=== PATIENT | male | born 1935 ===

== ENCOUNTER 2018-03-04 14:20 | Inpatient (IN) | payer MEDICARE ==
[~2018-03-04] VITALS: Ht 177.8 cm; Wt 54.4 kg
[2018-03-04] MEDS ORDERED: BISACODYL 10 MG SUPP PR PRN (15:30)
[2018-03-04] MEDS ORDERED: POLYETHYLENE GLYCOL 17 GM PACKET PO PRN (15:30)
[2018-03-04] MEDS ORDERED: DOCUSATE 100 MG CAPSULE PO PRN (15:30)
[2018-03-04] MEDS ORDERED: PLEASE ENTER HEIGHT AND WEIGHT MC SCH (16:30)
[2018-03-04] MEDS: PLEASE ENTER ALLERGIES MC SCH (16:30)
[2018-03-04] MEDS: FERROUS SULFATE 325 MG TABLET PO SCH (17:00)
[2018-03-04 17:35] VITALS: BP 125/63
[2018-03-04 19:50] VITALS: BP 111/56
[2018-03-04] MEDS: DIVALPROEX 125 MG CAP.SPRINK PO SCH (21:27)
[2018-03-05] MEDS: PLEASE ENTER ALLERGIES MC SCH (00:30)
[2018-03-05] MEDS: OMEPRAZOLE 20 MG CAPSULE.DR PO SCH (06:21)
[2018-03-05] MEDS: FERROUS SULFATE 325 MG TABLET PO SCH ×3 (08:50→19:47)
[2018-03-05] MEDS: DIVALPROEX 125 MG CAP.SPRINK PO SCH ×2 (08:50→19:47)
[2018-03-05 08:55] LABS: BASOPHILS # (AUTO) 0.04 x10^3/uL (0-0.1); BASOPHILS % (AUTO) 1 % (0-1); EOSINOPHILS # (AUTO) 0.07 x10^3/uL (0-0.4); EOSINOPHILS % (AUTO) 1 % (1-7); LYMPHOCYTES # (AUTO) 1.41 x10^3/uL (1-3.4); LYMPHOCYTES % (AUTO) 20 % (22-44); MD NO; MEAN CORPUSCULAR HEMOGLOBIN 32.2 pg (27.5-34.5); MEAN CORPUSCULAR HGB CONC 33.1 g/dL (33.2-36.2); MEAN CORPUSCULAR VOLUME 97.4 fL (81-97); MEAN PLATELET VOLUME 8.4 fL (7.4-10.4); MONOCYTES # (AUTO) 0.83 x10^3/uL (0.2-0.8); MONOCYTES % (AUTO) 12 % (2-9); NEUTROPHILS % (AUTO) 68 % (42-75); PLATELET COUNT 238 x10^3/uL (130-400); RED BLOOD COUNT 3.74 x10^6/uL (4.38-5.82); RED CELL DISTRIBUTION WIDTH 14.7 % (9.4-14.8)
[2018-03-05 09:11] LABS: ALBUMIN 3.6 g/dL (3.4-5.0); ANION GAP 9 mmol/L (5-15); CALCIUM 8.9 mg/dL (8.5-10.1); CHLORIDE 106 mmol/L (98-107)
[2018-03-05 09:32] LABS: % IRON SATURATION 13 % (20-55)
[2018-03-05 09:33] LABS: CHOL/HDL RATIO 3.3; HDL CHOL % 30 % (26-37); LDL CHOLESTEROL,CALCULATED 67 mg/dL (54-169); LDL/HDL RATIO 1.9 (0.5-3.0); VLDL CHOLESTEROL 17 mg/dL (0-25)
[2018-03-05 09:35] LABS: ALANINE AMINOTRANSFERASE 16 U/L (12-78); ALKALINE PHOSPHATASE 158 U/L (45-117); BILIRUBIN,TOTAL 0.3 mg/dL (0.2-1.0); CHOLESTEROL, TOTAL 120 mg/dL (140-239); CREATININE 0.93 mg/dL (0.7-1.3); FOLATE LEVEL 9.7 ng/mL (3.1-17.5); FREE T4 (FREE THYROXINE) 0.83 ng/dL (0.76-1.46); HDL CHOLESTEROL (DIRECT) 36 mg/dL (40-60); IRON LEVEL 51 mcg/dL (65-175); TOTAL IRON BINDING CAPACITY 396 mcg/dL (250-450); TOTAL PROTEIN 7.2 g/dL (6.4-8.2); TRIGLYCERIDES 87 mg/dL (50-200)
[2018-03-05] MEDS: DOCUSATE 100 MG CAPSULE PO SCH (11:00)
[2018-03-05 19:33] VITALS: BP 142/66
[2018-03-06] MEDS: OMEPRAZOLE 20 MG CAPSULE.DR PO SCH (05:48)
[2018-03-06 06:11] LABS: ANION GAP 7 mmol/L (5-15); CALCIUM 8.7 mg/dL (8.5-10.1); CHLORIDE 105 mmol/L (98-107)
[2018-03-06 06:14] LABS: CREATININE 0.78 mg/dL (0.7-1.3)
[2018-03-06 07:38] VITALS: BP 97/56
[2018-03-06] MEDS: DOCUSATE 100 MG CAPSULE PO SCH (09:21)
[2018-03-06] MEDS: FERROUS SULFATE 325 MG TABLET PO SCH ×3 (09:21→21:05)
[2018-03-06] MEDS: DIVALPROEX 125 MG CAP.SPRINK PO SCH ×2 (09:23→21:05)
[2018-03-06] MEDS ORDERED: LORazepam 2 MG/ML, 1ML ONE (10:07)
[2018-03-06] MEDS ORDERED: LORazepam 2 MG/ML, 1ML IM ONE (10:30)
[2018-03-06 17:59] VITALS: BP 130/68
[2018-03-06 19:38] VITALS: BP 159/76
[2018-03-06] MEDS ORDERED: QUETIAPINE 25MG TABLET PO SCH (21:00)
[2018-03-07 07:35] VITALS: BP 154/66
[2018-03-07] MEDS: DOCUSATE 100 MG CAPSULE PO SCH (10:18)
[2018-03-07] MEDS: OMEPRAZOLE 20 MG CAPSULE.DR PO SCH (10:18)
[2018-03-07] MEDS: FERROUS SULFATE 325 MG TABLET PO SCH ×3 (10:19→20:27)
[2018-03-07] MEDS: DIVALPROEX 125 MG CAP.SPRINK PO SCH ×2 (10:19→20:28)
[2018-03-07] MEDS ORDERED: QUETIAPINE 25MG TABLET PO SCH (21:00)
[2018-03-08] VITALS (15 sets, daily range): BP systolic 115–175; BP diastolic 54–83
[2018-03-08] MEDS: OMEPRAZOLE 20 MG CAPSULE.DR PO SCH (06:00)
[2018-03-08] MEDS ORDERED: LORazepam 2 MG/ML, 1ML IM PRN (07:30)
[2018-03-08] MEDS ORDERED: LORazepam 2 MG/ML, 1ML ONE (07:34)
[2018-03-08] MEDS: DIVALPROEX 125 MG CAP.SPRINK PO SCH ×2 (09:02→19:54)
[2018-03-08] MEDS: FERROUS SULFATE 325 MG TABLET PO SCH ×3 (09:02→19:54)
[2018-03-08] MEDS: DOCUSATE 100 MG CAPSULE PO SCH (09:02)
[2018-03-08] MEDS ORDERED: ZIPRASIDONE 20 MG INJ IM STA (09:59)
[2018-03-08] MEDS ORDERED: ZIPRASIDONE 20 MG INJ IM ONE (10:03)
[2018-03-08] MEDS: QUETIAPINE 25MG TABLET PO SCH (19:53)
[2018-03-08] MEDS ORDERED: QUETIAPINE 25MG TABLET PO SCH (21:00)
[2018-03-09] MEDS: OMEPRAZOLE 20 MG CAPSULE.DR PO SCH (05:36)
[2018-03-09 07:38] VITALS: BP 143/51
[2018-03-09] MEDS: DOCUSATE 100 MG CAPSULE PO SCH (09:39)
[2018-03-09] MEDS: FERROUS SULFATE 325 MG TABLET PO SCH ×3 (09:39→20:41)
[2018-03-09] MEDS: DIVALPROEX 125 MG CAP.SPRINK PO SCH ×2 (09:39→20:41)
[2018-03-09] MEDS: LORazepam 0.5MG TABLET PO PRN (09:39)
[2018-03-09 19:30] VITALS: BP 114/53
[2018-03-09] MEDS: QUETIAPINE 25MG TABLET PO SCH (20:40)
[2018-03-10] MEDS: OMEPRAZOLE 20 MG CAPSULE.DR PO SCH ×2 (07:00→09:06)
[2018-03-10 07:26] VITALS: BP 123/43
[2018-03-10] MEDS: DIVALPROEX 125 MG CAP.SPRINK PO SCH ×2 (09:05→20:27)
[2018-03-10] MEDS: DOCUSATE 100 MG CAPSULE PO SCH (09:05)
[2018-03-10] MEDS: ACETAMINOPHEN 325 MG TABLET PO PRN (09:06)
[2018-03-10] MEDS: FERROUS SULFATE 325 MG TABLET PO SCH ×3 (09:06→20:27)
[2018-03-10] MEDS: QUETIAPINE 25MG TABLET PO SCH (17:18)
[2018-03-10 20:40] VITALS: BP 144/63
[2018-03-11 07:23] VITALS: BP 112/51
[2018-03-11] MEDS: DOCUSATE 100 MG CAPSULE PO SCH ×2 (08:29→09:00)
[2018-03-11] MEDS: FERROUS SULFATE 325 MG TABLET PO SCH ×4 (08:29→20:30)
[2018-03-11] MEDS: DIVALPROEX 125 MG CAP.SPRINK PO SCH ×3 (08:29→20:30)
[2018-03-11] MEDS: QUETIAPINE 25MG TABLET PO SCH (17:13)
[2018-03-11 19:28] VITALS: BP 143/64
[2018-03-12] MEDS: OMEPRAZOLE 20 MG CAPSULE.DR PO SCH (05:21)
[2018-03-12 07:36] VITALS: BP 90/50
[2018-03-12] MEDS: DOCUSATE 100 MG CAPSULE PO SCH (10:09)
[2018-03-12] MEDS: FERROUS SULFATE 325 MG TABLET PO SCH ×3 (10:09→20:20)
[2018-03-12] MEDS: DIVALPROEX 125 MG CAP.SPRINK PO SCH ×2 (10:09→20:20)
[2018-03-12] MEDS: QUETIAPINE 25MG TABLET PO SCH (18:01)
[2018-03-12 19:49] VITALS: BP 167/68
[2018-03-12] MEDS: LORazepam 0.5MG TABLET PO PRN (20:20)
[2018-03-12] MEDS: QUETIAPINE 25MG TABLET PO PRN (20:20)
[2018-03-13] MEDS: OMEPRAZOLE 20 MG CAPSULE.DR PO SCH (05:50)
[2018-03-13 07:31] VITALS: BP 135/48
[2018-03-13] MEDS: DIVALPROEX 125 MG CAP.SPRINK PO SCH ×3 (08:44→20:03)
[2018-03-13] MEDS: LORazepam 0.5MG TABLET PO PRN ×2 (08:44→22:35)
[2018-03-13] MEDS: FERROUS SULFATE 325 MG TABLET PO SCH ×4 (08:45→20:04)
[2018-03-13] MEDS: DOCUSATE 100 MG CAPSULE PO SCH (08:46)
[2018-03-13] MEDS ORDERED: TRAZODONE 50MG TABLET PO PRN (11:00)
[2018-03-13] MEDS: QUETIAPINE 25MG TABLET PO SCH (17:16)
[2018-03-13 19:47] VITALS: BP 148/62
[2018-03-13] MEDS: QUETIAPINE 25MG TABLET PO PRN (22:35)
[2018-03-13] MEDS ORDERED: ZIPRASIDONE 20 MG INJ IM ONE (23:30)
[2018-03-14] MEDS: OMEPRAZOLE 20 MG CAPSULE.DR PO SCH (05:38)
[2018-03-14 07:41] VITALS: BP 108/48
[2018-03-14] MEDS: DOCUSATE 100 MG CAPSULE PO SCH (09:28)
[2018-03-14] MEDS: FERROUS SULFATE 325 MG TABLET PO SCH ×3 (09:28→20:07)
[2018-03-14] MEDS: DIVALPROEX 125 MG CAP.SPRINK PO SCH ×2 (09:28→20:07)
[2018-03-14 12:31] VITALS: BP 120/60
[2018-03-14] MEDS: ACETAMINOPHEN 325 MG TABLET PO PRN (15:03)
[2018-03-14] MEDS: QUETIAPINE 25MG TABLET PO SCH (17:00)
[2018-03-14 21:00] VITALS: BP 133/67
[2018-03-15 08:04] VITALS: BP 123/56
[2018-03-15] MEDS: OMEPRAZOLE 20 MG CAPSULE.DR PO SCH (08:34)
[2018-03-15] MEDS: FERROUS SULFATE 325 MG TABLET PO SCH ×3 (09:00→21:07)
[2018-03-15] MEDS: DOCUSATE 100 MG CAPSULE PO SCH (09:00)
[2018-03-15] MEDS: DIVALPROEX 125 MG CAP.SPRINK PO SCH ×2 (09:00→21:07)
[2018-03-15] MEDS: QUETIAPINE 25MG TABLET PO SCH (16:27)
[2018-03-15 19:16] VITALS: BP 106/55
[2018-03-15 19:18] VITALS: BP 112/68
[2018-03-16 07:22] VITALS: BP 114/68
[2018-03-16] MEDS: DOCUSATE 100 MG CAPSULE PO SCH (08:23)
[2018-03-16] MEDS: OMEPRAZOLE 20 MG CAPSULE.DR PO SCH (08:23)
[2018-03-16] MEDS: QUETIAPINE 25MG TABLET PO PRN (08:23)
[2018-03-16] MEDS: FERROUS SULFATE 325 MG TABLET PO SCH ×3 (08:23→20:03)
[2018-03-16] MEDS: DIVALPROEX 125 MG CAP.SPRINK PO SCH ×2 (08:23→20:05)
[2018-03-16] MEDS: QUETIAPINE 25MG TABLET PO SCH (17:11)
[2018-03-16 19:14] VITALS: BP 112/68
[2018-03-17 07:23] VITALS: BP 120/45
[2018-03-17] MEDS: DIVALPROEX 125 MG CAP.SPRINK PO SCH ×2 (07:53→20:39)
[2018-03-17] MEDS: OMEPRAZOLE 20 MG CAPSULE.DR PO SCH (07:53)
[2018-03-17] MEDS: DOCUSATE 100 MG CAPSULE PO SCH (07:53)
[2018-03-17] MEDS: FERROUS SULFATE 325 MG TABLET PO SCH ×3 (07:53→20:39)
[2018-03-17] MEDS: QUETIAPINE 25MG TABLET PO SCH (16:32)
[2018-03-17 19:36] VITALS: BP 123/51
[2018-03-18 07:40] VITALS: BP 174/81
[2018-03-18] MEDS: FERROUS SULFATE 325 MG TABLET PO SCH ×3 (08:30→20:42)
[2018-03-18] MEDS: OMEPRAZOLE 20 MG CAPSULE.DR PO SCH (08:30)
[2018-03-18] MEDS: DIVALPROEX 125 MG CAP.SPRINK PO SCH ×2 (08:30→20:42)
[2018-03-18] MEDS: DOCUSATE 100 MG CAPSULE PO SCH (08:30)
[2018-03-18] MEDS: QUETIAPINE 25MG TABLET PO SCH (17:44)
[2018-03-18 19:26] VITALS: BP 144/81
[2018-03-19 07:25] VITALS: BP 113/57
[2018-03-19 07:29] VITALS: BP 148/65
[2018-03-19] MEDS: OMEPRAZOLE 20 MG CAPSULE.DR PO SCH (07:35)
[2018-03-19] MEDS: FERROUS SULFATE 325 MG TABLET PO SCH ×3 (08:28→20:31)
[2018-03-19] MEDS: DOCUSATE 100 MG CAPSULE PO SCH (08:28)
[2018-03-19] MEDS: DIVALPROEX 125 MG CAP.SPRINK PO SCH ×2 (08:29→20:31)
[2018-03-19] MEDS: QUETIAPINE 25MG TABLET PO SCH (16:42)
[2018-03-19 16:53] VITALS: BP 148/61
[2018-03-19 16:56] VITALS: BP 115/61
[2018-03-19 19:30] VITALS: BP 110/49
[2018-03-20 06:45] VITALS: BP 111/55
[2018-03-20 07:15] VITALS: BP 120/67
[2018-03-20] MEDS: DOCUSATE 100 MG CAPSULE PO SCH (08:25)
[2018-03-20] MEDS: FERROUS SULFATE 325 MG TABLET PO SCH ×3 (08:25→20:22)
[2018-03-20] MEDS: DIVALPROEX 125 MG CAP.SPRINK PO SCH ×2 (08:25→20:22)
[2018-03-20] MEDS: OMEPRAZOLE 20 MG CAPSULE.DR PO SCH (08:25)
[2018-03-20] MEDS: QUETIAPINE 25MG TABLET PO SCH (17:11)
[2018-03-20 19:35] VITALS: BP 111/64
[2018-03-21 07:27] VITALS: BP 112/67
[2018-03-21] MEDS: FERROUS SULFATE 325 MG TABLET PO SCH ×3 (08:20→20:19)
[2018-03-21] MEDS: OMEPRAZOLE 20 MG CAPSULE.DR PO SCH (08:20)
[2018-03-21] MEDS: DOCUSATE 100 MG CAPSULE PO SCH (08:20)
[2018-03-21] MEDS: DIVALPROEX 125 MG CAP.SPRINK PO SCH ×2 (08:21→20:19)
[2018-03-21] MEDS: QUETIAPINE 25MG TABLET PO SCH (16:05)
[2018-03-21 19:48] VITALS: BP 136/71
[2018-03-22 07:47] VITALS: BP 123/67
[2018-03-22] MEDS: DOCUSATE 100 MG CAPSULE PO SCH (08:42)
[2018-03-22] MEDS: DIVALPROEX 125 MG CAP.SPRINK PO SCH ×2 (08:42→20:16)
[2018-03-22] MEDS: OMEPRAZOLE 20 MG CAPSULE.DR PO SCH (08:42)
[2018-03-22] MEDS: FERROUS SULFATE 325 MG TABLET PO SCH ×3 (08:42→20:16)
[2018-03-22] MEDS: QUETIAPINE 25MG TABLET PO SCH (16:11)
[2018-03-22 19:18] VITALS: BP_SYST 130; BP_SYST 164; BP_DIAS 81
[2018-03-23 07:25] VITALS: BP 116/63
[2018-03-23] MEDS: OMEPRAZOLE 20 MG CAPSULE.DR PO SCH (07:41)
[2018-03-23] MEDS: DOCUSATE 100 MG CAPSULE PO SCH (08:31)
[2018-03-23] MEDS: DIVALPROEX 125 MG CAP.SPRINK PO SCH ×2 (08:32→21:00)
[2018-03-23] MEDS: FERROUS SULFATE 325 MG TABLET PO SCH ×3 (08:32→21:00)
[2018-03-23] MEDS: QUETIAPINE 25MG TABLET PO SCH (17:11)
[2018-03-23 19:39] VITALS: BP 96/63
[2018-03-24 07:31] VITALS: BP 136/59
[2018-03-24] MEDS: FERROUS SULFATE 325 MG TABLET PO SCH (08:23)
[2018-03-24] MEDS: OMEPRAZOLE 20 MG CAPSULE.DR PO SCH (08:23)
[2018-03-24] MEDS: DIVALPROEX 125 MG CAP.SPRINK PO SCH (08:23)
[2018-03-24] MEDS: DOCUSATE 100 MG CAPSULE PO SCH (09:34)
== END 2018-03-24 15:35 | DRG 57 ==
LOC: 3E 15:59
PROVIDERS: ADMIT Counselor Mental Health; ATTEND Counselor Mental Health
DX: G30.9 Alzheimer's disease, unspecified (principal); E46 Unspecified protein-calorie malnutrition; Z68.1 Body mass index [BMI] 19.9 or less, adult; F02.81 Dementia in other diseases classified elsewhere, unspecified severity, with behavioral disturbance; I10 Essential (primary) hypertension; K21.9 Gastro-esophageal reflux disease without esophagitis; Z53.20 Procedure and treatment not carried out because of patient's decision for unspecified reasons; E87.5 Hyperkalemia; Z66 Do not resuscitate; Z91.14 Patient's other noncompliance with medication regimen; Z88.6 Allergy status to analgesic agent; Z88.8 Allergy status to other drugs, medicaments and biological substances
CPT/HCPCS: 36415; 80048; 80053; 80061; 80164; 82140; 82607; 82746; 83540; 83550; 84439; 84443; 85025; 86592; 93005; J3486; 92523-GN; J2060